=== PATIENT | male | born 1960 | race Caucasian/White ===

== ENCOUNTER 2023-07-10 12:34 | Outpatient (CLI) | payer OTHER, SELFPAY | END 2023-07-10 12:35 | disposition home or self-care (01) | PROVIDERS: PCP Family Medicine; Visit Provider Nurse Practitioner Family | DX: I87.2 Venous insufficiency (chronic) (peripheral) (principal); L97.822 Non-pressure chronic ulcer of other part of left lower leg with fat layer exposed | CPT/HCPCS: 87070; 87186; 97597; 99213 ==

== ENCOUNTER 2023-07-17 11:18 | Outpatient (CLI) | payer OTHER, SELFPAY | END 2023-07-17 11:19 | disposition home or self-care (01) | PROVIDERS: PCP Family Medicine; Visit Provider Nurse Practitioner Family | DX: I87.2 Venous insufficiency (chronic) (peripheral) (principal); L97.822 Non-pressure chronic ulcer of other part of left lower leg with fat layer exposed | CPT/HCPCS: 97597 ==

== ENCOUNTER 2023-07-24 11:22 | Outpatient (CLI) | payer OTHER, SELFPAY | END 2023-07-24 11:23 | disposition home or self-care (01) | LOC: WOUND 11:22 | PROVIDERS: PCP Family Medicine; Visit Provider Nurse Practitioner Family | DX: I87.2 Venous insufficiency (chronic) (peripheral) (principal); L97.822 Non-pressure chronic ulcer of other part of left lower leg with fat layer exposed; S81.801A Unspecified open wound, right lower leg, initial encounter; Z89.511 Acquired absence of right leg below knee | CPT/HCPCS: 97597 ==

== ENCOUNTER 2023-07-31 10:00 | Outpatient (CLI) | payer OTHER, SELFPAY | END 2023-07-31 10:01 | disposition home or self-care (01) | PROVIDERS: PCP Family Medicine; Visit Provider Nurse Practitioner Family | DX: I87.2 Venous insufficiency (chronic) (peripheral) (principal); L97.822 Non-pressure chronic ulcer of other part of left lower leg with fat layer exposed; S81.801A Unspecified open wound, right lower leg, initial encounter; Z89.511 Acquired absence of right leg below knee | CPT/HCPCS: 97597; 97598 ==

== ENCOUNTER 2023-08-07 08:18 | Outpatient (CLI) | payer OTHER, SELFPAY | END 2023-08-07 08:19 | disposition home or self-care (01) | PROVIDERS: PCP Family Medicine; Visit Provider Nurse Practitioner Family | DX: I87.2 Venous insufficiency (chronic) (peripheral) (principal); L97.822 Non-pressure chronic ulcer of other part of left lower leg with fat layer exposed; L89.893 Pressure ulcer of other site, stage 3; Z89.511 Acquired absence of right leg below knee | CPT/HCPCS: 87070; 87077; 87186; 97597; 99212 ==

== ENCOUNTER 2023-08-14 08:08 | Outpatient (CLI) | payer OTHER, SELFPAY | END 2023-08-14 08:09 | disposition home or self-care (01) | PROVIDERS: PCP Family Medicine; Visit Provider Nurse Practitioner Family | DX: I87.2 Venous insufficiency (chronic) (peripheral) (principal); L97.822 Non-pressure chronic ulcer of other part of left lower leg with fat layer exposed; L89.893 Pressure ulcer of other site, stage 3; Z89.511 Acquired absence of right leg below knee | CPT/HCPCS: 97597 ==

== ENCOUNTER 2023-08-17 08:05 | Outpatient (CLI) | payer OTHER, SELFPAY | END 2023-08-17 08:06 | disposition home or self-care (01) | LOC: WOUND 08:06 | PROVIDERS: PCP Family Medicine; Visit Provider Nurse Practitioner Family | DX: I87.2 Venous insufficiency (chronic) (peripheral) (principal); L97.822 Non-pressure chronic ulcer of other part of left lower leg with fat layer exposed | CPT/HCPCS: 29581 ==

== ENCOUNTER 2023-08-21 12:47 | Outpatient (CLI) | payer OTHER, SELFPAY ==
--- NOTE | 2023-08-21 14:00 | CRLHL7_ITS ---
For Patients: As a result of the Cures Act, medical imaging exams and procedure reports are released immediately into your electronic medical record. You may view this report before your referring provider. If you have questions, please contact your health care provider. INDICATION: NON-HEALING ULCER OF LEFT LEG COMPARISON: None available TECHNIQUE: A duplex venous ultrasound exam was performed of the left lower extremity using willett scale imaging, color Doppler and spectral Doppler analysis. Pre- and post compression images were obtained per site specific protocol. The size of the superficial veins were recorded, along with reflux times if applicable. FINDINGS: In the left lower extremity deep venous system, there is normal compressibility, color Doppler venous blood flow and augmentation within the common femoral vein, superficial femoral vein, popliteal vein, and posterior tibial veins. The greater and lesser saphenous veins of the left lower extremity are also patent and compressible with intact color Doppler venous blood flow. The greater saphenous vein measures 0.9 cm at the saphenofemoral junction where it is competent. The greater saphenous vein is competent throughout the thigh and calf. The lesser saphenous vein is competent throughout. IMPRESSION: 1. No deep or superficial venous thrombosis. 2. No venous insufficiency in the left lower extremity. Dictated by Ranjeet Covarrubias MD @ 08/24/2023 9:59:12 AM (Electronically Signed)
== END 2023-08-21 12:48 | disposition home or self-care (01) ==
PROVIDERS: PCP Family Medicine; Visit Provider Nurse Practitioner Family
DX: I87.2 Venous insufficiency (chronic) (peripheral) (principal); L97.822 Non-pressure chronic ulcer of other part of left lower leg with fat layer exposed; L89.893 Pressure ulcer of other site, stage 3; Z89.511 Acquired absence of right leg below knee
CPT/HCPCS: 93971; 97597

== ENCOUNTER 2023-08-25 08:39 | Outpatient (CLI) | payer OTHER, SELFPAY ==
[2023-08-28 15:37] LABS: Basophils Absolute Auto 0.01 K/uL (0.00-0.30); Basophils Percent Auto 0.2 % (0.0-3.0); Eosinophils Absolute Auto 0.03 K/uL (0.00-0.50); Eosinophils Percent Auto 0.7 % (0.0-7.0); Hematocrit 32.5 % (37.0-53.0); Hemoglobin* 11.1 gm/dL (13.5-17.5); Immature Granulocytes Abs Auto 0.03 K/uL (0.00-0.30); Immature Granulocytes Pct Auto 0.7 %; Lymphocytes Absolute Auto 1.05 K/uL (0.90-2.90); Lymphocytes Percent Auto 22.9 % (20-44); Mean Corpuscular HGB Conc 34 gm/dL (32-36); Mean Corpuscular Hemoglobin 39 pg (26-34); Mean Corpuscular Volume 114 fL (80-100); Monocytes Percent Auto 13.8 % (0.0-11.0); Neutrophils Absolute Auto 2.83 K/uL (1.7-7.0); Neutrophils Percent Auto 61.7 % (42.0-72.0); Platelet Count* 383 K/uL (140-440); RDW Coefficient of Variation % 11.9 % (11.5-15.5); Red Blood Count 2.85 m/uL (4.30-5.90); White Blood Count* 4.58 K/uL (4.50-11.00)
[2023-08-28 15:52] LABS: Chloride* 105 mmol/L (96-114); Sodium* 137 mmol/L (135-149)
[2023-08-28 15:53] LABS: Potassium* 4.4 mmol/L (3.6-5.1)
[2023-08-28 15:55] LABS: Creatinine* 0.7 mg/dL (0.5-1.5); Estimated Glomerular Filt Rate 105 ml/min
[2023-08-28 15:56] LABS: Anion Gap 9 mEq/L (7-15); Blood Urea Nitrogen* 17 mg/dL (7-30); Calcium* 8.9 mg/dL (8.4-10.6); Carbon Dioxide* 23 mmol/L (20-32); Glucose* 123 mg/dL (60-115)
[2023-08-28 15:59] LABS: C Reactive Protein* 8.6 mg/dL (0.5-1.0)
[2023-08-28 16:16] LABS: Slide Review Reflex No
[2023-08-31 01:09] LABS: Zinc, Serum/Plasma 63.8 ug/dL (60.0-120.0)
[2023-08-31 05:11] LABS: Prealbumin 13.3 mg/dL (20.0-40.0)
== END 2023-08-25 08:40 | disposition home or self-care (01) ==
PROVIDERS: PCP Family Medicine; Visit Provider Nurse Practitioner Family
DX: L89.894 Pressure ulcer of other site, stage 4 (principal); Z89.511 Acquired absence of right leg below knee; I87.2 Venous insufficiency (chronic) (peripheral); L97.822 Non-pressure chronic ulcer of other part of left lower leg with fat layer exposed
CPT/HCPCS: 11042; 29581; 87070; 87186; 99212

== ENCOUNTER 2023-08-28 13:51 | Outpatient (CLI) | payer OTHER, SELFPAY | END 2023-08-28 13:52 | disposition home or self-care (01) | PROVIDERS: PCP Family Medicine; Visit Provider Family Medicine | DX: I87.2 Venous insufficiency (chronic) (peripheral) (principal); L97.822 Non-pressure chronic ulcer of other part of left lower leg with fat layer exposed; L89.894 Pressure ulcer of other site, stage 4; Z89.511 Acquired absence of right leg below knee | CPT/HCPCS: 11042; 36415; 80048; 82728; 83036; 84134; 84630; 85025; 86140 ==

== ENCOUNTER 2023-08-28 15:01 | Outpatient (CLI) | payer OTHER, SELFPAY ==
--- NOTE | 2023-08-28 15:00 | CRLHL7_ITS ---
For Patients: As a result of the Cures Act, medical imaging exams and procedure reports are released immediately into your electronic medical record. You may view this report before your referring provider. If you have questions, please contact your health care provider. Indication: R BKA STUMP, ASSESS FOR FLUID POCKET Technique: Right knee 2 views Comparison: None Findings: Right [id number] amputation. There is a pocket of air measuring 4.8 cm within the stump soft tissues at the anterior/lateral aspect. No cortical destruction or periostitis. Surgical clips. No joint effusion. No fracture. Impression: Soft tissue swelling/ulcer regarding the anterior stump soft tissues without radiographic evidence of osteomyelitis. Dictated by Ranjeet Covarrubias MD @ 08/31/2023 6:30:46 AM (Electronically Signed)
--- NOTE | 2023-08-28 15:00 | CRLHL7_ITS ---
For Patients: As a result of the Century Cures Act, medical imaging exams and procedure reports are released immediately into your electronic medical record. You may view this report before your referring provider. If you have questions, please contact your health care provider. INDICATION: NON-HEALING ULCER TECHNIQUE: Left lower extremity arterial duplex ultrasound with color Doppler and spectral waveform analysis. COMPARISON: 08/21/2023 venous study FINDINGS: Multiple sonographic willett-scale images demonstrate atherosclerotic plaque in the left lower extremity. Left leg: Systolic velocities are within normal limits. Color Doppler and spectral waveform analysis demonstrates triphasic/biphasic waveforms are demonstrated throughout. IMPRESSION: No major occlusions or significant stenoses. Dictated by Ranjeet Covarrubias MD @ 08/31/2023 9:06:28 AM (Electronically Signed)
== END 2023-08-28 15:02 | disposition home or self-care (01) ==
LOC: US 15:02
PROVIDERS: PCP Family Medicine; Visit Provider Nurse Practitioner Family
DX: L89.899 Pressure ulcer of other site, unspecified stage (principal)
CPT/HCPCS: 36415; 73560; 80048; 82728; 83036; 84134; 84630; 85025; 86140; 93926

== ENCOUNTER 2023-09-01 07:52 | Outpatient (CLI) | payer OTHER, SELFPAY | END 2023-09-01 07:53 | disposition home or self-care (01) | LOC: WOUND 07:52 | PROVIDERS: PCP Family Medicine; Visit Provider Nurse Practitioner Family | DX: I87.2 Venous insufficiency (chronic) (peripheral) (principal); L97.822 Non-pressure chronic ulcer of other part of left lower leg with fat layer exposed | CPT/HCPCS: 29581 ==

== ENCOUNTER 2023-09-04 09:21 | Outpatient (CLI) | payer OTHER, SELFPAY | END 2023-09-04 09:22 | disposition home or self-care (01) | PROVIDERS: PCP Family Medicine; Visit Provider Nurse Practitioner Family | DX: I87.2 Venous insufficiency (chronic) (peripheral) (principal); L97.822 Non-pressure chronic ulcer of other part of left lower leg with fat layer exposed; L89.894 Pressure ulcer of other site, stage 4; Z89.511 Acquired absence of right leg below knee | CPT/HCPCS: 11042; 97597 ==

== ENCOUNTER 2023-09-18 10:27 | Outpatient (CLI) | payer OTHER, SELFPAY | END 2023-09-18 10:28 | disposition home or self-care (01) | PROVIDERS: PCP Family Medicine; Visit Provider Nurse Practitioner Family | DX: I87.2 Venous insufficiency (chronic) (peripheral) (principal); L97.822 Non-pressure chronic ulcer of other part of left lower leg with fat layer exposed | CPT/HCPCS: 97597 ==

== ENCOUNTER 2023-09-25 08:55 | Outpatient (CLI) | payer OTHER, SELFPAY | END 2023-09-25 08:56 | disposition home or self-care (01) | LOC: WOUND 08:55 | PROVIDERS: PCP Family Medicine; Visit Provider Family Medicine | DX: I87.2 Venous insufficiency (chronic) (peripheral) (principal); L97.822 Non-pressure chronic ulcer of other part of left lower leg with fat layer exposed | CPT/HCPCS: 11042 ==

== ENCOUNTER 2023-10-02 08:44 | Outpatient (CLI) | payer OTHER, SELFPAY | END 2023-10-02 08:45 | disposition home or self-care (01) | LOC: WOUND 08:44 | PROVIDERS: PCP Family Medicine; Visit Provider Nurse Practitioner Family | DX: I87.2 Venous insufficiency (chronic) (peripheral) (principal); L97.822 Non-pressure chronic ulcer of other part of left lower leg with fat layer exposed | CPT/HCPCS: 97597 ==

== ENCOUNTER 2023-10-09 08:05 | Outpatient (CLI) | payer OTHER, SELFPAY | END 2023-10-09 08:06 | disposition home or self-care (01) | PROVIDERS: PCP Family Medicine; Visit Provider Nurse Practitioner Family | DX: I87.2 Venous insufficiency (chronic) (peripheral) (principal); L97.822 Non-pressure chronic ulcer of other part of left lower leg with fat layer exposed | CPT/HCPCS: 99212 ==

== ENCOUNTER 2023-10-23 09:15 | Outpatient (CLI) | payer OTHER, SELFPAY | END 2023-10-23 09:16 | disposition home or self-care (01) | PROVIDERS: PCP Family Medicine; Visit Provider Nurse Practitioner Family | DX: I87.2 Venous insufficiency (chronic) (peripheral) (principal); L97.822 Non-pressure chronic ulcer of other part of left lower leg with fat layer exposed | CPT/HCPCS: G0463 ==